=== PATIENT | female | born 1995 | race Caucasian/White ===

== ENCOUNTER 2016-11-26 15:22 | Emergency (ER) | payer MEDICAID ==
[2016-11-26] MEDS ORDERED: IPRATROPIUM/ALBUTEROL 3 ML NEB INH STA (15:39)
[2016-11-26] MEDS ORDERED: DEXAMETHASONE 10 MG/ML VIAL PO STA (15:40)
[2016-11-26] MEDS ORDERED: CHERRY SYRUP 10 ML UDC PO ONE (15:42)
[2016-11-26] MEDS ORDERED: DEXAMETHASONE 10 MG/ML VIAL ONE (15:42)
[2016-11-26] MEDS ORDERED: IPRATROPIUM/ALBUTEROL 3 ML NEB INH ONE (15:50)
[2016-11-26] MEDS ORDERED: AZITHROMYCIN 250 MG TABLET PO STA (16:50)
[2016-11-26] MEDS ORDERED: AZITHROMYCIN 250 MG TABLET PO ONE (16:57)
== END 2016-11-26 17:09 | disposition home or self-care (01) ==
DX: O99.511 Diseases of the respiratory system complicating pregnancy, first trimester (principal); J18.9 Pneumonia, unspecified organism; J45.909 Unspecified asthma, uncomplicated; O99.331 Smoking (tobacco) complicating pregnancy, first trimester; F17.200 Nicotine dependence, unspecified, uncomplicated; Z3A.01 Less than 8 weeks gestation of pregnancy
CPT/HCPCS: 71020; 81025; 94640; 99283; 99284; A9270; J7620

== ENCOUNTER 2016-11-27 11:04 | Emergency (ER) | payer MEDICAID | END 2016-11-27 15:19 | disposition home or self-care (01) | DX: O20.9 Hemorrhage in early pregnancy, unspecified (principal); Z3A.01 Less than 8 weeks gestation of pregnancy; J45.909 Unspecified asthma, uncomplicated; O99.331 Smoking (tobacco) complicating pregnancy, first trimester ==

== ENCOUNTER 2019-05-19 13:36 | Emergency (ER) | payer MEDICAID ==
[2019-05-19 13:50] VITALS: BP 115/71
[2019-05-19 14:02] LABS: BILIRUBIN,URINE NEGATIVE (NEGATIVE); GLUCOSE, URINE (UA) NEGATIVE (NEGATIVE); KETONES,URINE (UA) NEGATIVE (NEGATIVE); LEUKOCYTE ESTERASE, URINE TRACE (NEGATIVE); NITRITE,URINE POSITIVE (NEGATIVE); OCCULT BLOOD,URINE NEGATIVE (NEGATIVE); PH,URINE 6.5 PH (5.0-7.5); PROTEIN,URINE NEGATIVE (NEGATIVE); UROBILINOGEN,URINE 0.2 (NORMAL) E.U./dL (NORMAL)
--- NOTE | 2019-05-19 14:03 | ED Physician Documentation ---
PD HPI FEMALE - Stated complaint Stated Complaint: FEM - Chief complaint Chief Complaint: UTI - History obtained from History obtained from: Patient - History of Present Illness Timing - onset: Yesterday (Since yesterday she has had a strange feeling of a flap at the end of her urethra, feels like it flaps shut when she tries to pee. 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 05/19/19 Nitrofurantoin Monohyd/M-Cryst 100 mg PO BID #10 capsule 05/19/19 [Macrobid 100 mg Capsule] - Allergies Allergies/Adverse Reactions: Allergies Allergy/AdvReac Type Severity Reaction Status Date / Time acetaminophen [From Vicodin] Allergy Intermediate Nausea Verified 11/04/14 22:26 cefuroxime axetil * Allergy Intermediate Itching Verified 11/04/14 22:26 [From Ceftin] hydrocodone bitartrate * Allergy Intermediate Nausea Verified 11/04/14 22:26 [From Vicodin] codeine [Codeine] AdvReac Severe Hallucinati Verified 11/04/14 22:26 ons amoxicillin trihydrate * AdvReac Intermediate Hives Verified 11/04/14 22:26 [From Augmentin] ciprofloxacin [From Cipro] AdvReac Intermediate Edema Verified 11/04/14 22:26 ciprofloxacin HCl * AdvReac Intermediate Edema Verified 11/04/14 22:26 [From Cipro] potassium clavulanate * AdvReac Intermediate Hives Verified 11/04/14 22:26 [From Augmentin] eggs Allergy Intermediate Edema Uncoded 11/04/14 22:26 bandezol AdvReac Intermediate Hives Uncoded 11/04/14 22:26 - Social History Does the pt smoke?: Yes Smoking Status: Current every day smoker Does the pt drink ETOH?: No Does the pt have substance abuse?: No - Immunizations Immunizations are current?: Yes PD ED PE NORMAL - Vitals Vital signs reviewed: Yes - General General: Alert and oriented X 3, No acute distress - Abdomen Abdomen: Normal bowel sounds, Soft, Non tender - Back Back: No CVA TTP, No spinal TTP - Derm Derm: Other (2 small areas of ringworm, one left upper chest wall and one on the right ankle.) - Neuro Neuro: Alert and oriented X 3, Normal speech Results - Vitals Vitals: Vital Signs - 24 hr 05/19/19 13:48 Temperature 36.9 C Heart Rate 75 Respiratory 15 Rate Blood Pressure 115/71 O2 Saturation 100 Oxygen O2 Source Room air - Labs Labs: Laboratory Tests 05/19/19 13:55 Urine Color YELLOW Urine Clarity HAZY Urine pH 6.5 Ur Specific [place] 1.020 Urine Protein NEGATIVE Urine Glucose (UA) NEGATIVE Urine Ketones NEGATIVE Urine Occult Blood NEGATIVE Urine Nitrite POSITIVE H Urine Bilirubin NEGATIVE Urine Urobilinogen 0.2 (NORMAL) Ur Leukocyte Esterase TRACE H Urine RBC 0-5 Urine WBC 11-25 H Ur Squamous Epith Cells RARE Squamous Urine Bacteria Moderate H Ur Microscopic Review INDICATED Urine Culture Comments INDICATED Departure - Departure Disposition: 01 Home, Self Care Clinical Impression: Ringworm, Cystitis Condition: Good Record reviewed to determine appropriate education?: Yes Instructions: ED UTI Cystitis Female Prescriptions: Clotrimazole [Antifungal Ringworm] 1 gm TP BID #2 cream..g. Nitrofurantoin Monohyd/M-Cryst [Macrobid 100 mg Capsule] 100 mg PO BID #10 capsule Comments: We will culture your urine, the results should be done in 48-72 hours. If an antibiotic change is necessary we will call you. Return if worse in the meantime, especially if you develop increasing flank pain, fevers, or cannot keep down the medication.
[2019-05-19 14:04] LABS: CLARITY,URINE HAZY (CLEAR)
[2019-05-19 14:09] LABS: BACTERIA,URINE Moderate /HPF (None Seen); RBC,URINE 0-5 /HPF (0-5); SQUAMOUS EPITHELIAL CELL,UR RARE Squamous (<= Few)
[2019-05-19] MEDS ORDERED: NITROFURANTOIN MACRO 100 MG CAPSULE PO STA (14:23)
== END 2019-05-19 14:34 | disposition home or self-care (01) ==
LOC: ED 13:36
DX: N30.90 Cystitis, unspecified without hematuria (principal); B35.4 Tinea corporis; B35.8 Other dermatophytoses; F17.200 Nicotine dependence, unspecified, uncomplicated
CPT/HCPCS: 81001; 87077; 87086; 87181; 99283; A9270; 81003

== ENCOUNTER 2021-10-10 10:57 | Emergency (ER) | payer MEDICAID ==
[2021-10-10 11:20] VITALS: BP 129/81
--- OUTSIDE RECORDS SUMMARY | 2021-10-10 11:50 | EXTERNAL MEDICAL SUMMARY RPT | Continuity of Care Document ---
:1995 Author Organization [facility] Address [address] [place] [address] Phone Care Team Providers Name Role Phone Hogge Unavailable Unavailable Allergies No information. Encounters No information. Medications No information. Problems date description facility [id number] [facility] Procedures date description facility [id number] [facility] Results No information. Vital Signs date measurement value source [id number] temperature_standard 98 F [id number] temperature_metric 36.67 C [id number] respiration_rate 16 /min [id number] heart_rate 90 /min [id number] BP_systolic 136 mm[Hg] 20210819 BP_diastolic 98 mm[Hg]
--- NOTE | 2021-10-10 12:27 | ED Physician Documentation ---
PD HPI HEENT - Stated complaint Stated Complaint: LT EAR PX - Chief complaint Chief Complaint: Heent - History obtained from History obtained from: Patient - Additional information Additional information: The patient comes to the emergency department chief complaint of left ear pain. Patient states that developed the pain in the middle of the night last night. She has had a lot of ear problems and has chronic drainage from both of her ears. She has noticed increased drainage from her left ear. No fevers or chills. No recent upper respiratory infection. Review of Systems Ten Systems: 10 systems reviewed and negative Constitutional: reports: Reviewed and negative Eyes: reports: Reviewed and negative Ears: reports: Ear pain Nose: reports: Reviewed and negative Throat: reports: Reviewed and negative Cardiac: reports: Reviewed and negative Respiratory: reports: Reviewed and negative GI: reports: Reviewed and negative : reports: Reviewed and negative Skin: reports: Reviewed and negative Musculoskeletal: reports: Reviewed and negative Neurologic: reports: Reviewed and negative Psychiatric: reports: Reviewed and negative Endocrine: reports: Reviewed and negative Immunocompromised: reports: Reviewed and negative PD PAST MEDICAL HISTORY - Past Medical History Cardiovascular: None Respiratory: Asthma Endocrine/Autoimmune: None GI: None 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 05/19/19 Nitrofurantoin Monohyd/M-Cryst 100 mg PO BID #10 capsule 05/19/19 [Macrobid 100 mg Capsule] Neomycin/Polymyx/Hc Otic Drops 4 drops OT TID #10 ml 10/10/21 [Cortisporin Ear Susp] - Allergies Allergies/Adverse Reactions: Allergies Allergy/AdvReac Type Severity Reaction Status Date / Time acetaminophen [From Vicodin] Allergy Intermediate Nausea Verified 10/10/21 11:21 cefuroxime axetil * Allergy Intermediate Itching Verified 10/10/21 11:21 [From Ceftin] hydrocodone bitartrate * Allergy Intermediate Nausea Verified 10/10/21 11:21 [From Vicodin] codeine [Codeine] AdvReac Severe Hallucinati Verified 10/10/21 11:21 ons amoxicillin trihydrate * AdvReac Intermediate Hives Verified 10/10/21 11:21 [From Augmentin] ciprofloxacin [From Cipro] AdvReac Intermediate Edema Verified 10/10/21 11:21 ciprofloxacin HCl * AdvReac Intermediate Edema Verified 10/10/21 11:21 [From Cipro] potassium clavulanate * AdvReac Intermediate Hives Verified 10/10/21 11:21 [From Augmentin] eggs Allergy Intermediate Edema Uncoded 10/10/21 11:21 bandezol AdvReac Intermediate Hives Uncoded 10/10/21 11:21 - Social History Does the pt smoke?: Yes Smoking Status: Current every day smoker Does the pt drink ETOH?: No Does the pt have substance abuse?: No - Immunizations Immunizations are current?: Yes PD ED PE NORMAL - Vitals Vital signs reviewed: Yes - General General: Alert and oriented X 3, No acute distress, Well developed/nourished - HEENT HEENT: Atraumatic, PERRL, EOMI, Moist mucous membranes, Other (EKG mild otitis externa of the left ear. TM visualized and is clear to white. Mild amount of fluid behind TM.) - Cardiac Cardiac: RRR, No murmur - Respiratory Respiratory: Clear bilaterally - Abdomen Abdomen: Normal bowel sounds, Soft, Non tender, Non distended - Derm Derm: Warm and dry - Extremities Extremities: No deformity - Neuro Neuro: Alert and oriented X 3 - Psych Psych: Normal mood, Normal affect Results - Vitals Vitals: Vital Signs - 24 hr 10/10/21 11:18 Temperature 36.3 C L Heart Rate 79 Respiratory 18 Rate Blood Pressure 129/81 H O2 Saturation 97 Oxygen O2 Source Room air PD MEDICAL DECISION MAKING - ED course Complexity details: re-evaluated patient, considered differential, d/w patient ED course: I discussed treatment of the otitis externa with the patient. We have discussed the usual indications for return. Departure - Departure Disposition: 01 Home, Self Care Clinical Impression: Otitis externa Qualifiers: Otitis externa type: unspecified type Chronicity: acute Laterality: left Qualified Code(s): H60.502 - Unspecified acute noninfective otitis externa, left ear Condition: Stable Instructions: ED Otitis Externa Prescriptions: Neomycin/Polymyx/Hc Otic Drops [Cortisporin Ear Susp] 4 drops OT TID #10 ml Comments: Your prescription has been electronically transmitted to [facility] pharmacy in [place]. There is no evidence of middle ear infection at this time. You have a very tiny perforation in your eardrum, which should be expected to heal. There is no redness or swelling of the eardrum. Please use the topical medication, as directed. If you do not feel like you are getting any better, please follow-up with your primary doctor to discuss whether you should be referred to the ENT specialist. Discharge Date/Time: 10/10/21 12:39
== END 2021-10-10 12:39 | disposition home or self-care (01) ==
LOC: ED 10:57
DX: H60.502 Unspecified acute noninfective otitis externa, left ear (principal); F17.200 Nicotine dependence, unspecified, uncomplicated
CPT/HCPCS: 99282; 99283

== ENCOUNTER 2023-06-07 13:58 | Emergency (ER) | payer MEDICAID ==
--- NOTE | 2023-06-07 15:12 | ED Physician Documentation ---
History of Present Illness - Stated complaint Stated Complaint: BACK PX/COLD/SWEATING - Chief complaint Chief Complaint: Back Pain - History obtained from History obtained from: Patient - History of Present Illness Timing: Yesterday Pain level max: 5 Pain level now: 5 - Additonal information Additional information: Patient is a 28-year-old female who presents to the emergency department right flank pain fever and chills since yesterday. No dysuria. No vaginal bleeding or discharge. No cough. No congestion. No runny nose or sore throat. No nausea or vomiting. Nothing really makes it better or worse. Denies any possibility of . 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 05/19/19 Nitrofurantoin Monohyd/M-Cryst 100 mg PO BID #10 capsule 05/19/19 [Macrobid 100 mg Capsule] Neomycin/Polymyx/Hc Otic Drops 4 drops OT TID #10 ml 10/10/21 [Cortisporin Ear Susp] Sulfamethox/Trimeth 800/160 1 each PO BID #20 tablet 06/07/23 [Bactrim Ds 800/160] - Allergies Allergies/Adverse Reactions: Allergies Allergy/AdvReac Type Severity Reaction Status Date / Time acetaminophen [From Vicodin] Allergy Intermediate Nausea Verified 06/07/23 14:31 cefuroxime axetil * Allergy Intermediate Itching Verified 06/07/23 14:31 [From Ceftin] hydrocodone bitartrate * Allergy Intermediate Nausea Verified 06/07/23 14:31 [From Vicodin] codeine [Codeine] AdvReac Severe Hallucinati Verified 06/07/23 14:31 ons amoxicillin trihydrate * AdvReac Intermediate Hives Verified 06/07/23 14:31 [From Augmentin] ciprofloxacin [From Cipro] AdvReac Intermediate Edema Verified 06/07/23 14:31 ciprofloxacin HCl * AdvReac Intermediate Edema Verified 06/07/23 14:31 [From Cipro] potassium clavulanate * AdvReac Intermediate Hives Verified 06/07/23 14:31 [From Augmentin] eggs Allergy Intermediate Edema Uncoded 06/07/23 14:31 bandezol AdvReac Intermediate Hives Uncoded 06/07/23 14:31 - Social History Does the pt smoke?: Yes Smoking Status: Current every day smoker Does the pt drink ETOH?: No Does the pt have substance abuse?: No - Immunizations Immunizations are current?: Yes PD ED PE NORMAL - Vitals Vital signs reviewed: Yes - General General: Alert and oriented X 3, No acute distress, Well developed/nourished - HEENT HEENT: PERRL, Ears normal, Moist mucous membranes, Pharynx benign - Neck Neck: Supple, no meningeal sign, No adenopathy - Cardiac Cardiac: RRR, Strong equal pulses - Respiratory Respiratory: No respiratory distress, Clear bilaterally - Abdomen Abdomen: Soft, Non tender, Non distended - Back Back: Other (Mild right CVA tenderness. No left CVA tenderness.) - Derm Derm: Warm and dry - Extremities Extremities: No edema, No calf tenderness / cord - Neuro Neuro: Alert and oriented X 3 - Psych Psych: Normal mood, Normal affect Results - Vitals Vitals: Vital Signs - 24 hr 06/07/23 06/07/23 14:25 16:34 Temperature 36.9 C Heart Rate 115 H 102 H Respiratory 16 18 Rate Blood Pressure 111/76 108/74 O2 Saturation 99 100 Oxygen O2 Source Room air - Labs Labs: Laboratory Tests 06/07/23 15:20 Urine Color YELLOW Urine Clarity CLEAR Urine pH 6.0 Ur Specific [place] <=1.005 Urine Protein NEGATIVE Urine Glucose (UA) NEGATIVE Urine Ketones NEGATIVE Urine Occult Blood TRACE-LYSE Urine Nitrite NEGATIVE Urine Bilirubin NEGATIVE Urine Urobilinogen 0.2 (NORMAL) Ur Leukocyte Esterase SMALL H Urine RBC 11-25 H Urine WBC 6-10 H Ur Squamous Epith Cells FEW Squamous Urine Bacteria Few Urine Casts 0-2 Hyaline Casts Ur Microscopic Review INDICATED Urine Culture Comments INDICATED Urine HCG, Qual NEGATIVE PD Medical Decision Making - ED course Complexity details: reviewed results, re-evaluated patient, considered differential, d/w patient ED course: Patient with what appears to be UTI, she does have right-sided CVA tenderness, will treat as pyelonephritis. Also has chills. She is well-appearing, nontoxic. Afebrile here. She has multiple antibiotic allergies, therefore we will start her on Bactrim. Patient is not . No evidence of sepsis. No fever here. No history of ureteral stones. No indication for emergent CT. Patient counseled regarding signs and symptoms for which I believe and urgent re-evaluation would be necessary. Patient with good understanding of and agreement to plan and is comfortable going home at this time This document was made in part using voice recognition software. While efforts are made to proofread this document, sound alike and grammatical errors may occur. Finally I would certainly Departure - Departure Disposition: 01 Home, Self Care Clinical Impression: Pyelonephritis Condition: Good Instructions: ED Kidney Infec Female Follow-Up: Gabe Macario MD [Primary Care Provider] - Within 1 week Prescriptions: Sulfamethox/Trimeth 800/160 [Bactrim Ds 800/160] 1 each PO BID #20 tablet Comments: Your prescriptions were sent to [facility] in [place]. Please follow-up with your doctor for further care. Please return if you worsen. Take all antibiotics until gone even if you are feeling better. You can use Motrin or Tylenol as needed for pain. Discharge Date/Time: 06/07/23 16:35
[2023-06-07 15:52] LABS: BILIRUBIN,URINE NEGATIVE (NEGATIVE); GLUCOSE, URINE (UA) NEGATIVE (NEGATIVE); KETONES,URINE (UA) NEGATIVE (NEGATIVE); LEUKOCYTE ESTERASE, URINE SMALL (NEGATIVE); NITRITE,URINE NEGATIVE (NEGATIVE); OCCULT BLOOD,URINE TRACE-LYSE (NEGATIVE); PROTEIN,URINE NEGATIVE (NEGATIVE); UROBILINOGEN,URINE 0.2 (NORMAL) E.U./dL (NORMAL)
[2023-06-07 15:58] LABS: CLARITY,URINE CLEAR (CLEAR); HCG UR QUAL NEGATIVE
[2023-06-07 16:08] LABS: BACTERIA,URINE Few /HPF (None Seen); CASTS, URINE 0-2 Hyaline Casts /LPF; SQUAMOUS EPITHELIAL CELL,UR FEW Squamous (<= Few)
[2023-06-07] MEDS ORDERED: SULFAMETH/TRIMETH DS 800/160 MG TABLET PO STA (16:23)
[2023-06-07 16:36] VITALS: BP 108/74; O2SAT 100
--- NOTE | 2023-06-09 12:11 | ED Physician Documentation ---
ED Addendum - Addendum Addendum: 06/09/23 12:10 Urine culture reviewed and spoke with patient. She is on Bactrim but doing much much better. All of her symptoms of pretty much resolved. We discussed her culture and sensitivities as well as for allergies. She has an extensive allergy list and is basically allergic to every oral option available to her other than the Bactrim. She said maybe she could tolerate the side effects of Augmentin. Given that she is so much better now, despite the resistance to Bactrim, I suspect she is improving because of the high urine concentration of the antibiotic pushing through the resistance. As such I elected to tell her to continue the Bactrim but keep a close eye out for recurrent symptoms and return immediately if she were to develop them at which point we would have to have a discussion of which medication she is allergic to that we would put her on.
== END 2023-06-07 16:35 | disposition home or self-care (01) ==
LOC: ED 13:58
DX: N12 Tubulo-interstitial nephritis, not specified as acute or chronic (principal); B96.20 Unspecified Escherichia coli [E. coli] as the cause of diseases classified elsewhere; F17.200 Nicotine dependence, unspecified, uncomplicated; Z79.899 Other long term (current) drug therapy; Z88.1 Allergy status to other antibiotic agents
CPT/HCPCS: 81001; 81025; 87077; 87086; 87181; 99283; A9270; 81003

== ENCOUNTER 2023-12-20 14:53 | Emergency (ER) | payer MEDICAID ==
[2023-12-20 15:28] VITALS: O2SAT 100
--- NOTE | 2023-12-20 15:35 | ED Physician Documentation ---
History of Present Illness - Stated complaint Stated Complaint: RIVERA,BACK PX - Chief complaint Chief Complaint: General - Additonal information Additional information: 28-year-old female presents emergency department for right upper back pain, headache fevers and chills. Patient says that she is unsure how high her fevers been at home. Her main concern is that she has a urinary tract infection because last time she had a UTI she had no other symptoms except for fever. 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 HEENT: None Musculoskeletal: None Derm: None - Past Surgical History Past Surgical History: Yes HEENT: Myringotomy (tubes) - Present Medications Home Medications: Ambulatory Orders Medication Instructions Recorded Confirmed Sulfamethox/Trimeth 800/160 1 tablet PO BID 4 Days #8 tablet 12/20/23 [Bactrim Ds] - Allergies Allergies/Adverse Reactions: Allergies Allergy/AdvReac Type Severity Reaction Status Date / Time acetaminophen [From Vicodin] Allergy Intermediate Nausea Verified 06/07/23 14:31 cefuroxime axetil * Allergy Intermediate Itching Verified 06/07/23 14:31 [From Ceftin] hydrocodone bitartrate * Allergy Intermediate Nausea Verified 06/07/23 14:31 [From Vicodin] codeine [Codeine] AdvReac Severe Hallucinati Verified 06/07/23 14:31 ons amoxicillin trihydrate * AdvReac Intermediate Hives Verified 06/07/23 14:31 [From Augmentin] ciprofloxacin [From Cipro] AdvReac Intermediate Edema Verified 06/07/23 14:31 ciprofloxacin HCl * AdvReac Intermediate Edema Verified 06/07/23 14:31 [From Cipro] potassium clavulanate * AdvReac Intermediate Hives Verified 06/07/23 14:31 [From Augmentin] eggs Allergy Intermediate Edema Uncoded 06/07/23 14:31 bandezol AdvReac Intermediate Hives Uncoded 06/07/23 14:31 - Social History Does the pt smoke?: Yes Smoking Status: Current every day smoker Does the pt drink ETOH?: No Does the pt have substance abuse?: No - Immunizations Immunizations are current?: Yes PD ED PE NORMAL - Vitals Vital signs reviewed: Yes - General General: Alert and oriented X 3, No acute distress, Well developed/nourished - Abdomen Abdomen: Normal bowel sounds, Soft, Non tender, No organomegaly - Back Back: Other (mild right CVA tenderness) - Derm Derm: Normal color Results - Vitals Vitals: Vital Signs - 24 hr 12/20/23 12/20/23 15:21 17:00 Temperature 36.5 C 36.8 C Heart Rate 78 65 Respiratory 15 18 Rate Blood Pressure 122/80 120/68 O2 Saturation 100 100 Oxygen O2 Source Room air - Labs Labs: Microbiology 12/20/23 15:54 Urine Culture - Preliminary Urine,Clean Catch Laboratory Tests 12/20/23 12/20/23 15:43 15:54 Urine Color YELLOW Urine Clarity CLOUDY Urine pH 6.0 Ur Specific [place] 1.025 Urine Protein NEGATIVE Urine Glucose (UA) NEGATIVE Urine Ketones NEGATIVE Urine Occult Blood TRACE-INTA Urine Nitrite POSITIVE H Urine Bilirubin NEGATIVE Urine Urobilinogen 0.2 (NORMAL) Ur Leukocyte Esterase MODERATE H Urine RBC 0-5 Urine WBC >25 H Ur Squamous Epith Cells FEW Squamous Urine Bacteria Moderate H Ur Microscopic Review INDICATED Urine Culture Comments INDICATED Nasal Adenovirus (PCR) NOT DETECTED Nasal B. parapertussis DNA (PCR) NOT DETECTED Nasal Coronavir 229E PCR NOT DETECTED Nasal Coronavir HKU1 PCR NOT DETECTED Nasal Coronavir NL63 PCR NOT DETECTED Nasal Coronavir OC43 PCR NOT DETECTED Nasal Enterovir/Rhinovir PCR NOT DETECTED Nasal Influenza B PCR NOT DETECTED Nasal Influenza A PCR NOT DETECTED Nasal Parainfluen 1 PCR NOT DETECTED Nasal Parainfluen 2 PCR NOT DETECTED Nasal Parainfluen 3 PCR NOT DETECTED Nasal Parainfluen 4 PCR NOT DETECTED Nasal RSV (PCR) NOT DETECTED Nasal B.pertussis DNA PCR NOT DETECTED Nasal C.pneumoniae (PCR) NOT DETECTED Eliu Human Metapneumo PCR NOT DETECTED Nasal M.pneumoniae (PCR) NOT DETECTED Nasal SARS-CoV-2 (PCR) NOT DETECTED PD Medical Decision Making - ED course ED course: 28-year-old female presents emergency department for fevers chills and right upper back pain. Urinalysis does reveal positive nitrites and leukocytes with moderate bacteria indicative of a urinary tract infection. Given that patient does have some mild right upper back pain this could be indicative of a possible pyelonephritis so we went ahead and started her on Bactrim here in the ER. Prescription sent to patient's preferred pharmacy considered adding on some Pyridium but patient does not have any dysuria or bladder pain. She says she is moving soon so does not have a primary care provider at this point in time strongly encouraged her to try and get established [address] to get appointment soon as possible follow-up. Return precautions given urine sent for cultures. All questions answered and patient is safe for discharge at this time. Departure - Departure Disposition: 01 Home, Self Care Clinical Impression: UTI (urinary tract infection) Instructions: UTI Prescriptions: Sulfamethox/Trimeth 800/160 [Bactrim Ds] 1 tablet PO BID 4 Days #8 tablet Comments: Uzma does appear that you have a urinary tract infection. I have started you on antibiotic called Bactrim you will take this twice a day for the next 4 days. I have sent this to [facility] this up today start next pill first thing in the morning. Please come back to the emergency department if you are developing any worsening fevers or chills nausea vomiting or any other concerning symptoms. We will culture your urine, the results should be done in 48-72 hours. If an antibiotic change is necessary we will call you. Return if worse in the meantime, especially if you develop increasing flank pain, fevers, or cannot keep down the medication. Forms: PCP List Discharge Date/Time: 12/20/23 17:03
[2023-12-20 16:02] LABS: BILIRUBIN,URINE NEGATIVE (NEGATIVE); CLARITY,URINE CLOUDY (CLEAR); GLUCOSE, URINE (UA) NEGATIVE (NEGATIVE); KETONES,URINE (UA) NEGATIVE (NEGATIVE); LEUKOCYTE ESTERASE, URINE MODERATE (NEGATIVE); NITRITE,URINE POSITIVE (NEGATIVE); OCCULT BLOOD,URINE TRACE-INTA (NEGATIVE); PROTEIN,URINE NEGATIVE (NEGATIVE); UROBILINOGEN,URINE 0.2 (NORMAL) E.U./dL (NORMAL)
[2023-12-20 16:09] LABS: BACTERIA,URINE Moderate /HPF (None Seen); RBC,URINE 0-5 /HPF (0-5); SQUAMOUS EPITHELIAL CELL,UR FEW Squamous (<= Few); WBC,URINE >25 /HPF (0-5)
[2023-12-20 16:44] LABS: B. PARAPERTUSSIS- RESP PCR PAN NOT DETECTED; B. PERTUSSIS- RESP PCR PANEL NOT DETECTED; C. PNEUMONIAE- RESP PCR PANEL NOT DETECTED; CORONAVIRUS 229E-RESP PCR NOT DETECTED; CORONAVIRUS HKU1-RESP PCR NOT DETECTED; CORONAVIRUS NL63-RESP PCR NOT DETECTED; CORONAVIRUS OC43-RESP PCR NOT DETECTED; HUMAN METAPNEUMOVIRUS NOT DETECTED; INFLUENZA A- RESP PCR PANEL NOT DETECTED; INFLUENZA B - RESP PCR PANEL NOT DETECTED; M. PNEUMONIAE- RESP PCR PANEL NOT DETECTED; PARAINFLUENZA VIRUS 1 NOT DETECTED; PARAINFLUENZA VIRUS 2 NOT DETECTED; PARAINFLUENZA VIRUS 3 NOT DETECTED; PARAINFLUENZA VIRUS 4 NOT DETECTED; RHINOVIRUS/ENTEROVIRUS NOT DETECTED; RSV- RESP PCR PANEL NOT DETECTED; SARS-CoV-2 -RESP PCR PANEL NOT DETECTED
[2023-12-20] MEDS: SULFAMETH/TRIMETH DS 800/160 MG TABLET PO STA (17:01)
[2023-12-20 17:03] VITALS: BP 120/68
--- NOTE | 2023-12-22 17:21 | ED Physician Documentation ---
ED Addendum - Addendum Addendum: 12/22/23 17:21 Called and spoke with the patient. She is currently out of town. Her urine is resistant to the Bactrim that she was prescribed. She states she is feeling better but still has some chills. I went over her allergy list with her. She states she absolutely cannot take ciprofloxacin as it causes swelling. She states that the Ceftin did cause a mild itching but no rash, no anaphylaxis and she states she would like to try something similar to that again as the last t andrea she took that was "decades ago". Therefore we will trial her on cefpodoxime and see if this works better for her. Informed her that she will need to monitor herself very closely for any allergic reaction symptoms. I again clarified that she has had no anaphylaxis, urticaria from cephalosporins in the past. Prescription was sent to [facility] in [place]. I informed her that if she has any issues, she should return for repeat evaluation. Departure - Departure Disposition: 01 Home, Self Care Clinical Impression: UTI (urinary tract infection) Qualifiers: Urinary tract infection type: site unspecified Hematuria presence: without hematuria Qualified Code(s): N39.0 - Urinary tract infection, site not specified Condition: Good Instructions: UTI Prescriptions: Sulfamethox/Trimeth 800/160 [Bactrim Ds] 1 tablet PO BID 4 Days #8 tablet Cefpodoxime Proxetil [Vantin] 100 mg PO Q12H #20 tablet Comments: Uzma does appear that you have a urinary tract infection. I have started you on antibiotic called Bactrim you will take this twice a day for the next 4 days. I have sent this to [facility] pick this up today start next pill first thing in the morning. Please come back to the emergency department if you are developing any worsening fevers or chills nausea vomiting or any other concerning symptoms. We will culture your urine, the results should be done in 48-72 hours. If an antibiotic change is necessary we will call you. Return if worse in the meantime, especially if you develop increasing flank pain, fevers, or cannot keep down the medication. Forms: PCP List Discharge Date/Time: 12/20/23 17:03
--- NOTE | 2023-12-22 17:32 | ED Physician Documentation ---
ED Addendum - Addendum Addendum: 12/22/23 17:30 The patient's insurance does not cover cefpodoxime, therefore we will change to cefdinir. Departure - Departure Disposition: 01 Home, Self Care Clinical Impression: UTI (urinary tract infection) Qualifiers: Urinary tract infection type: site unspecified Hematuria presence: without hematuria Qualified Code(s): N39.0 - Urinary tract infection, site not specified Condition: Good Instructions: UTI Prescriptions: Cefdinir 300 mg PO BID #20 cap Comments: Uzma does appear that you have a urinary tract infection. I have started you on antibiotic called Bactrim you will take this twice a day for the next 4 days. I have sent this to [facility] pick this up today start next pill first thing in the morning. Please come back to the emergency department if you are developing any worsening fevers or chills nausea vomiting or any other concerning symptoms. We will culture your urine, the results should be done in 48-72 hours. If an antibiotic change is necessary we will call you. Return if worse in the meantime, especially if you develop increasing flank pain, fevers, or cannot keep down the medication. Forms: PCP List Discharge Date/Time: 12/20/23 17:03
== END 2023-12-20 17:03 | disposition home or self-care (01) ==
LOC: ED 14:53
DX: N39.0 Urinary tract infection, site not specified (principal); F17.200 Nicotine dependence, unspecified, uncomplicated; Z20.822 Contact with and (suspected) exposure to COVID-19; Z20.828 Contact with and (suspected) exposure to other viral communicable diseases; Z20.818 Contact with and (suspected) exposure to other bacterial communicable diseases; Z88.1 Allergy status to other antibiotic agents
CPT/HCPCS: 81001; 87077; 87086; 87181; 87633; 99283; A9270; 81003